=== PATIENT | male | born 1965 | race Caucasian/White ===

== ENCOUNTER 2018-03-02 19:47 | Inpatient (IN) | payer SELFPAY ==
[~2018-03-02 19:47] MED LIST: ISOVUE-370 76%-LOCM 1 ML ONE
[2018-03-02 20:23] LABS: #Basophils 0.1 thou/uL (0.0-0.2); #Eosinphils 0.2 thou/uL (0.0-0.7); #Monocytes 1.7 thou/uL (0.11-0.59); #Neutrophils 15.6 thou/uL (1.40-6.50); %Basophils 0.6 % (0.0-1.0); %Eosinophils 0.9 % (0.0-10.0); %Lymphocytes 10.3 % (21.0-51.0); %Monocytes 8.5 % (0.0-10.0); %Neutrophils 79.7 % (42.0-75.0); Hemoglobin 14.6 g/dL (14.0-18.0); Mean Corpuscular HGB CONC 33.7 g/dL (32.0-36.0); Mean Corpuscular Volume 89.2 fL (78.0-98.0); Mean Platelet Volume 7.7 fL (7.4-10.4); Platelet Count 329 thou/uL (130-400); RBC Distribution Width 11.8 % (11.5-14.5); Red Blood Cell (RBC) Count 4.85 mill/uL (4.70-6.10); White Blood Cell (WBC) Count 19.5 thou/uL (4.8-10.8)
[2018-03-02 20:46] LABS: ALT (SGPT) 16 U/L (8-55); AST (SGOT) 9 U/L (5-34); Alkaline Phosphatase 79 U/L (40-150); Anion Gap 10 mmol/L (10-20); BUN (Urea Nitrogen) 11 mg/dL (8.9-20.6); Bilirubin, Total 0.6 mg/dL (0.2-1.2); CK (CPK) 93 U/L (30-200); Calc. Creatinine Clearance 0 mL/min (70-130); Carbon Dioxide 24 mmol/L (22-29); Chloride 103 mmol/L (98-107); Estimated GFR-MDRD Greater than 90; Globulin 3.1 g/dL (2.4-3.5); Glucose 95 mg/dL (70-105); Lipase 14 U/L (8-78); Potassium 3.8 mmol/L (3.5-5.1); Protein, Total 7.1 g/dL (6.0-8.3); Sodium 133 mmol/L (136-145)
[2018-03-02] MEDS ORDERED: Piperacillin/Tazobactam 4.5 GM VIAL ONE (20:53)
[2018-03-02 21:52] LABS: Bilirubin Negative (Negative); Blood, Urine Negative (Negative); Clarity CLEAR (Clear); Glucose, Urine (Dipstick) Negative (Negative); Leukocyte Trace (Negative); Nitrite Negative (Negative); Protein, Urine (Dipstick) Negative (Neg-Trace); Specific Gravity, Urine 1.014 (1.002-1.036); Urobilinogen 0.2 mg/dL (0.2-1.0)
[2018-03-02 21:54] LABS: Bacteria/HPF None Seen HPF (None Seen); Hyaline Casts/LPF 0-3 HYALINE CAST LPF (0-3 Hyaline); RBC/HPF 0-3 HPF (0-3); Squamous Epithelial None Seen HPF (0-3); WBC/HPF 0-3 HPF (0-3)
--- NOTE | 2018-03-02 21:56 | CT ---
ABDOMEN AND PELVIS CT WITH CONTRAST: CLINICALLY INDICATIONS: Pain. COMPARISON: 01/20/2013 FINDINGS: Several small hypodensities are seen within the renal parenchyma bilaterally, too small to further ch aracterize. Several metallic clips of the right abdomen are present, about the gallbladder fossa and adjacent to the right kidney. There is multifocal punctate, nonobstructing nephrolithiasis bilatera lly, more numerous on the left. There is focal inflammation in the left lower quadrant, about the left hemicolon and region of the si gmoid colon, where there are several diverticula. The bowel is incompletely assessed without IV or e nteric contrast. There is surrounding fluid density, which could either relate to inflammatory edema or could relate to a component of perforated, acutely inflamed colon, incompletely assessed on the b asis of this noncontrast technique. No disseminated free air. Mild scattered vascular disease. Low attention of the liver may relate to hepatic steatosis. IMPRESSION: Evidence to indicate acute diverticulitis, with surrounding extraluminal fluid density, as discussed above, limited by noncontrast technique. Recommend clinical correlation. POS: DEBRA
[2018-03-02] MEDS ORDERED: metroNIDAZOLE 500 MG/100 ML BAG ONE (22:10)
[2018-03-02] MEDS ORDERED: Morphine 4 MG/ML VIAL ONE (22:45)
[2018-03-02] MEDS ORDERED: Acetaminophen 500 MG TAB ONE (22:52)
[2018-03-02] MEDS ORDERED: Ondansetron HCl/PF 4 MG/2 ML Vial ONE (22:52)
[2018-03-02] MEDS ORDERED: Ibuprofen 800 MG TAB ONE (22:56)
[2018-03-03 01:14] VITALS: BMI 30.1
[2018-03-03] MEDS ORDERED: Ondansetron ODT 4 MG TAB PO PRN (07:29)
[2018-03-03] MEDS ORDERED: Ondansetron HCl/PF 4 MG/2 ML Vial IVP PRN (07:29)
[2018-03-03] MEDS ORDERED: Acetaminophen 325 MG TAB PO PRN (07:29)
[2018-03-03] MEDS ORDERED: Sodium Chloride 0.9% 1,000 ML IV SCH (07:30)
--- NOTE | 2018-03-03 07:46 | HP ---
HISTORY OF PRESENT ILLNESS: This is a 52-year-old male patient, unemployed, lives in [place]. He berenice es with his mother and his girlfriend. He is working on disability for his back. He has had prior e pisodes of diverticulitis, last episode 3 to 4 years ago. Ten years ago, he had a colonoscopy at [facility] that he reports as normal. He has experienced pain in his left lower lucas drant, suprapubic area, last 2-3 days. He has had a fever to 102 degrees. He presents to the emerge ncy room, had a white count of 19,000, hemoglobin 14. CAT scan obtained revealed changes consistent with diverticulitis. ALLERGIES: MORPHINE. SOCIAL HISTORY: Tobacco: A 1/2-pack per day. Alcohol: None. MEDICATIONS: Aspirin, timolol eye drops, lisinopril 10 mg a day. PAST MEDICAL HISTORY: Hypertension. PAST SURGICAL HISTORY: Partial right nephrectomy by Dr. De Oliveira for cancer. He has had prior cystosco pies and stents placed. Colonoscopy, 10 years ago, at [facility]. PAST MEDICAL HISTORY: Hypertension. REVIEW OF SYSTEMS: Ten-point noncontributory. FAMILY HISTORY: Noncontributory. PHYSICAL EXAMINATION: VITAL SIGNS: 6 feet tall, 222 pounds, 30 BMI, 98 degrees, 93, 124/82. LUNGS: Clear to auscultation. CARDIAC: Regular rate and rhythm without murmur, rub, or gallop. ABDOMEN: Soft, tenderness in his left lower quadrant with guarding. Remainder of his abdomen is sof t. He has a small diastasis recti. EXTREMITIES: Unremarkable. No ankle edema. Palpable pedal pulses. No lymphadenopathy in neck, axi lla, or groins. NEUROLOGIC: Neurologically intact. No focal deficit. GCS 15. LABORATORY DATA: Sodium 133, potassium 3.8, BUN 11, creatinine 0.86. Liver function tests normal. White count 19, hemoglobin 14, platelet count 329,000. ASSESSMENT AND PLAN: 1. Diverticulitis, treated with n.p.o. status, IV antibiotics until his pain and tenderness improved . We would then plan on slowly advancing his diet after his pain and tenderness improved and/or that resolved and keep him on a soft, low fiber diet for 2 weeks, transition to high-fiber diet after 2 w eeks. Consider colonoscopy in the next 4-6 weeks as an outpatient, although financial status will be a barrier to that. 2. Hypertension.
[2018-03-03] MEDS: Enoxaparin Sodium 40 MG/0.4 ML SYRINGE SC SCH (08:31)
[2018-03-03] MEDS: Sodium Chloride 0.9% 1,000 ML IV SCH ×3 (08:31→23:39)
[2018-03-03] MEDS: Pantoprazole 40 MG VIAL IVP SCH (08:32)
[2018-03-03] MEDS: Ketorolac Tromethamine 30 MG/ML VIAL IVP SCH ×3 (08:32→20:35)
[2018-03-03] MEDS: Lisinopril 10 MG TAB PO SCH (08:33)
[2018-03-03] MEDS: Aspirin 325 MG TAB PO SCH (08:34)
[2018-03-03] MEDS: Timolol 0.5% Ophth Soln 5 ml Bottle EA EYE SCH (11:50)
[2018-03-03] MEDS: Piperacillin/Tazobactam 4.5 GM in Sodium Chloride 0.9% 100 ML IVPB SCH ×3 (11:51→23:36)
[2018-03-03] MEDS: Acetaminophen 1,000 MG in Premix Bag 1 BAG IVPB SCH ×3 (11:53→23:39)
--- NOTE | 2018-03-03 13:44 | CON ---
DATE OF CONSULTATION: 03/03/2018 HISTORY OF PRESENT ILLNESS: Patient is a 52-year-old male who was in normal state of healt h until few days prior to admission when he developed severe lower abdominal pain. He had no nausea, vomiting, no change in his bowel movements. No recent weight loss. He says it felt like diverticul itis. He has had approximately 3 episodes in the last 15 years. He underwent a colonoscopy by [facility] proximately 6 years ago that showed left-sided diverticula. PAST MEDICAL HISTORY: Significant for hypertension. PAST SURGICAL HISTORY: Includes a right partial nephrectomy for renal cell carcinoma. MEDICATIONS: Includes aspirin 325 mg p.o. daily, eyedrops and lisinopril 10 mg p.o. daily. ALLERGIES: MORPHINE. SOCIAL HISTORY: Does smoke, does not drink alcohol. FAMILY HISTORY: Negative for GI or liver disease. REVIEW OF SYSTEMS: Ten systems were reviewed and were negative except for above. PHYSICAL EXAMINATION: GENERAL: Shows an overweight male in no acute distress. VITAL SIGNS: Temperature 97.7, pulse 86, respiratory rate 16, blood pressure 124/75. HEENT: Unremarkable. NECK: Supple. CHEST: Clear. CARDIOVASCULAR: Regular rate and rhythm. ABDOMEN: Soft, tender diffusely, but more so in the lower quadrant. Positive rebound and positive f or guarding. RECTAL: Deferred. EXTREMITIES: Normal. NEUROLOGIC: Nonfocal. LABORATORY DATA: Shows a white blood cell count at 19.5, hemoglobin 14.6, hematocrit 43.2. Chemistr ies are essentially normal except for sodium of 133. ASSESSMENT: 1. Uncomplicated sigmoid diverticulitis. 2. Hypertension. RECOMMENDATIONS: 1. Continue IV antibiotics. 2. Continue antibiotic course for approximately 2 weeks. 3. Outpatient colonoscopy. 4. Begin a full liquid diet.
[2018-03-04] MEDS: Ketorolac Tromethamine 30 MG/ML VIAL IVP SCH ×2 (03:01→08:37)
[2018-03-04 04:44] LABS: #Basophils 0.1 thou/uL (0.0-0.2); #Eosinphils 0.4 thou/uL (0.0-0.7); #Lymphocytes 2.1 thou/uL (1.20-3.40); #Neutrophils 7.5 thou/uL (1.40-6.50); %Basophils 0.7 % (0.0-1.0); %Lymphocytes 19.1 % (21.0-51.0); %Monocytes 8.7 % (0.0-10.0); %Neutrophils 67.6 % (42.0-75.0); Hemoglobin 12.4 g/dL (14.0-18.0); Mean Corpuscular HGB CONC 32.8 g/dL (32.0-36.0); Mean Corpuscular Hemoglobin 29.9 pg (27.0-31.0); Mean Corpuscular Volume 91.4 fL (78.0-98.0); Mean Platelet Volume 8.3 fL (7.4-10.4); Platelet Count 292 thou/uL (130-400); RBC Distribution Width 11.6 % (11.5-14.5); Red Blood Cell (RBC) Count 4.15 mill/uL (4.70-6.10)
[2018-03-04 04:58] LABS: Anion Gap 9 mmol/L (10-20); BUN (Urea Nitrogen) 10 mg/dL (8.9-20.6); Calc. Creatinine Clearance 132 mL/min (70-130); Calcium 9.1 mg/dL (7.8-10.44); Carbon Dioxide 26 mmol/L (22-29); Chloride 106 mmol/L (98-107); Estimated GFR-MDRD 84; Glucose 109 mg/dL (70-105); Potassium 3.7 mmol/L (3.5-5.1); Sodium 137 mmol/L (136-145)
[2018-03-04] MEDS: Acetaminophen 1,000 MG in Premix Bag 1 BAG IVPB SCH ×2 (05:02→12:13)
[2018-03-04] MEDS: Piperacillin/Tazobactam 4.5 GM in Sodium Chloride 0.9% 100 ML IVPB SCH ×2 (05:04→12:12)
[2018-03-04] MEDS: Sodium Chloride 0.9% 1,000 ML IV SCH ×2 (05:06→08:39)
--- NOTE | 2018-03-04 05:22 | HP ---
DATE OF ADMISSION: 03/02/2018 REASON FOR ADMISSION AND CHIEF COMPLAINT: Abdominal pain. HISTORY OF PRESENT ILLNESS: Mr. Yun is a 52-year-old male with past medical history of h ypertension, diverticulitis, came with abdominal pain, lower abdomen with decreased appetite for 2 da ys, also had a fever of 101-102 with chills, but no nausea, vomiting. No diarrhea. Patient had dive rticulitis episode a few years ago. The patient came to the hospital because of this worsening abdom inal pain. In the ER, patient was evaluated and found to have sigmoid colon diverticulitis. Patient received a dose of Cipro and Flagyl and started on IV fluids and admitted for further evaluation and management. PAST MEDICAL HISTORY: 1. Hypertension. 2. Hyperlipidemia. 3. History of colon diverticulitis. 4. Gastroesophageal reflux disease. PAST SURGICAL HISTORY: 1. Status post nephrectomy. 2. Status post nerve repair in the finger. CURRENT MEDICATIONS: Patient is on lisinopril 10 mg daily, omeprazole 40 mg b.i.d., and sertraline 1 00 mg daily. FAMILY HISTORY: Nothing of interest. SOCIAL HISTORY: Patient lives with family. No history of smoking. No history of alcohol intake. REVIEW OF SYSTEMS: Unremarkable except for the abdominal pain. PHYSICAL EXAMINATION: GENERAL: Patient is alert, awake, oriented x3. VITAL SIGNS: Temperature 98, pulse 105, respirations 20, blood pressure 120/80. HEENT: Head is normocephalic and atraumatic. Pupils are equal and reactive to light. Nasopharynx i s pale and dry. Hard and soft palate, no lesions seen. SKIN: Skin turgor decreased. NECK: Supple. No JVD. LUNGS: Breath sounds diminished bilaterally. No rales, no rhonchi. CARDIAC: S1, S2 regular. ABDOMEN: Soft, diffusely tender. No guarding, no rigidity. Bowel sounds present. RECTAL: Deferred. CENTRAL NERVOUS SYSTEM: No focal deficit. LABORATORY AND X-RAY FINDINGS: CBC shows WBC 19.5, hemoglobin 14, hematocrit 43, platelets 329. Met abolic panel: Sodium 133, potassium 3.8, chloride 103, CO2 of 24, urea nitrogen 11, creatinine 0.86, glucose 95. Urinalysis negative. CT scan of the abdomen and pelvis showed acute diverticulitis ___ __ sigmoid colon. ASSESSMENT: 1. Acute sigmoid diverticulitis. 2. Hypertension. 3. Gastroesophageal reflux disease. 4. Hyperlipidemia. PLAN: 1. Vital signs q.4 hours. 2. Activity: As tolerated. 3. Allergies: MORPHINE. 4. IV fluids: Normal saline 100 mL per hour. 5. Diet: Full liquids. 6. Continue home medication. 7. Patient already started on Zosyn. 8. GI consult.
[2018-03-04 08:10] VITALS: TEMP 98.5
[2018-03-04] MEDS: Enoxaparin Sodium 40 MG/0.4 ML SYRINGE SC SCH (08:33)
[2018-03-04] MEDS: Lisinopril 10 MG TAB PO SCH (08:33)
[2018-03-04] MEDS: Aspirin 325 MG TAB PO SCH (08:34)
[2018-03-04] MEDS: Timolol 0.5% Ophth Soln 5 ml Bottle EA EYE SCH (08:34)
[2018-03-04] MEDS: Pantoprazole 40 MG VIAL IVP SCH (08:38)
--- NOTE | 2018-03-04 11:24 | PRG ---
DATE OF SERVICE: 03/04/2018 SUBJECTIVE: The patient is feeling much better. He is tolerating a diet. His pain is much less. OBJECTIVE: VITAL SIGNS: Temperature 98.5, pulse 83, respiratory rate 20, blood pressure 136/76. CHEST: Clear. CARDIOVASCULAR: Regular rate and rhythm. ABDOMEN: Soft, nontender, without organomegaly or masses. LABORATORY DATA: Shows a white blood cell count 11.0, hemoglobin 12.4, hematocrit 37.9. Chemistries show glucose 109. ASSESSMENT: Uncomplicated diverticulitis. RECOMMENDATIONS: 1. Switch to oral antibiotics and continue for a total antibiotic course of 2 weeks. 2. Outpatient colonoscopy in 8 weeks. 3. Stable for discharge from GI standpoint. 4. We will sign off.
[2018-03-04 12:11] VITALS: BP 131/84
--- NOTE | 2018-03-04 15:22 | PRG ---
DATE OF SERVICE: 03/04/2018 SUBJECTIVE: Mr. Yun is doing well today. Dr. Reyes is order regular diet. The patient has c onsumed that, he has not have any pain. He has had bowel movements. OBJECTIVE: VITAL SIGNS: 98.5 degrees, 86, 131/84. LUNGS: Clear to auscultation. CARDIAC: Regular rate and rhythm without murmur or gallop. ABDOMEN: Soft, nontender, no tenderness, no pain. LABORATORY DATA: This morning, his white count is 11, hemoglobin 12. ASSESSMENT AND PLAN: Resolving diverticulitis, I have recommended he has been seen by the dietitian to admissions counselor him on a soft, low fiber diet for two weeks, transition to a high fiber diet after that he is follow up with Gastroenterology for colonoscopy in the future. He should follow up in my office p.r.n. recurrent pain. The patient will be discharge home today on Augmentin for 7 days.
[2018-03-04] MEDS ORDERED: Amoxicillin/Potassium Clav 500 MG TAB PO SCH (21:00)
== END 2018-03-04 16:19 | disposition home or self-care (01) | DRG 392 ==
LOC: ERS 19:47 → T4-B 22:02 → UNDODISIN 03-04 14:11
PROVIDERS: ADMIT Internal Medicine; ATTEND Internal Medicine
DX: K57.32 Diverticulitis of large intestine without perforation or abscess without bleeding (principal); I10 Essential (primary) hypertension; E78.5 Hyperlipidemia, unspecified; K21.9 Gastro-esophageal reflux disease without esophagitis; F17.210 Nicotine dependence, cigarettes, uncomplicated; G89.29 Other chronic pain; M54.9 Dorsalgia, unspecified; Z79.82 Long term (current) use of aspirin; Z85.528 Personal history of other malignant neoplasm of kidney
CPT/HCPCS: 36415; 74177; 80048; 80053; 81003; 81015; 82550; 83605; 83690; 85025; 87040; 87086; A4216; C9113; J0131; J0744; J1650; J1885; J2270; J2405; J2543; J7050